=== PATIENT | female | born 1970 | race Caucasian/White ===

== ENCOUNTER 2021-12-18 09:47 | Emergency (ER) | payer OTHER ==
[~2021-12-18] VITALS: Ht 175.3 cm; Wt 55.9 kg
[2021-12-18] MEDS ORDERED: IV RINGERS,LACTATED 500ML 1,000 ML IV ONE (10:30)
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
[2021-12-18 10:59] LABS: CALCIUM 9.6 mg/dL (8.5-10.1); CREATININE 1.1 mg/dL (0.6-1.0); GFR 52.2; POTASSIUM 4.2 mmol/L (3.5-5.1)
[2021-12-18 11:07] LABS: BILIRUBIN,URINE NEGATIVE (NEG); CLARITY,URINE CLEAR; COLOR,URINE YELLOW; PH,URINE 5.5 (<5.0-8.0); PROTEIN,URINE TRACE mg/dL (NEG-TRACE); UROBILINOGEN,URINE 0.2 mg/dL (0.2 mg/dL)
[2021-12-18 11:08] LABS: NITRITE,URINE NEGATIVE (NEG)
[2021-12-18 11:10] LABS: ALBUMIN 3.5 g/dL (3.4-5.0); ALBUMIN/GLOBULIN RATIO 1.1 (1.0-1.7); TOTAL BILIRUBIN 0.3 mg/dL (0.2-1.0); TOTAL PROTEIN 6.6 g/dL (6.4-8.2)
[2021-12-18 11:10] LABS: BACTERIA,URINE 0 /HPF (0-FEW); RBC,URINE 0 /HPF (0-2)
[2021-12-18 11:12] LABS: BASO % 1 % (0-3); EOS # 0.1 x10^3/uL (0.0-0.7); EOS % 1 % (0-3); HEMATOCRIT 41.9 % (36.0-47.0); LYMPH # 1.1 x10^3/uL (1.0-4.8); LYMPH % 25 % (24-48); MEAN CORPUSCULAR HEMOGLOBIN 33 pg (25-35); MEAN CORPUSCULAR HGB CONC 34 g/dL (31-37); MEAN CORPUSCULAR VOLUME 99 fL (79-100); MONO # 0.3 x10^3/uL (0.0-1.1); MONO % 6 % (0-9); NEUT # 3.1 x10^3/uL (1.8-7.7); NEUT % 67 % (31-73); PLATELET COUNT 276 x10^3/uL (140-400); RED BLOOD COUNT 4.22 x10^6/uL (3.50-5.40); WHITE BLOOD COUNT 4.6 x10^3/uL (4.0-11.0)
[2021-12-18] MEDS ORDERED: IOHEXOL 300 MG/ML 100ML VIAL. IV ONE (11:30)
[2021-12-18] MEDS ORDERED: CONTRAST GIVEN. MC PRN (11:30)
--- NOTE | 2021-12-18 12:04 | RAD ---
CT ABDOMEN+PELVIS W History: right flank pain Comparison: None. Technique: After administration of intravenous contrast, helical CT of the abdomen and pelvis was per formed from the lung bases through the ischial tuberosities. Coronal and sagittal reconstructions wer e obtained. 60 mL of Omnipaque 300 were used. One or more of the following dose reduction techniques were utilized: Automated exposure control (AEC), Adjustment of mA and/or kV according to patient size , Use of iterative reconstruction technique such as ASiR, CT scan done according to ALARA and image g ently/image wisely Abdomen Findings: The visualized lung bases are clear. Small hiatal hernia. The liver, pancreas, spleen, and bilateral adrenal glands are normal. Cholecystectomy. Symmetric renal enhancement. There is no focal renal mass. There is no hydronephrosis. Bilateral tasneem l cortical irregularity, possibly due to prior infections and/or infarcts. The visualized loops of small bowel are normal. Mild colonic diverticulosis. Moderate to large coloni c stool burden. There is no evidence of bowel obstruction. Appendix is normal. There is no free fluid. There is no mesenteric or retroperitoneal adenopathy. The abdominal aorta is normal in caliber. Pelvis Findings: Urinary bladder is normal. Retroflexed uterus. No pelvic free fluid. There is no pelvic or inguinal a denopathy. There is no acute bony abnormality. IMPRESSION: 1. No acute findings. Normal appendix. No hydronephrosis or opaque urinary calculi. 2. Moderate to large colonic stool burden, which may reflect constipation. 3. Bilateral renal cortical irregularity, possibly due to prior infections and/or infarcts. Electronically signed by: Dilan Scales MD (12/18/2021 12:02 PM) [id number]
[2021-12-18] MEDS ORDERED: POLY119P4 PO (12:36)
[2021-12-18] MEDS ORDERED: DOCU283E RC (12:36)
[2021-12-18 12:40] VITALS: BP 134/71
== END 2021-12-18 12:45 | disposition home or self-care (01) ==
LOC: ER 09:47
DX: K59.00 Constipation, unspecified (principal); F43.10 Post-traumatic stress disorder, unspecified; Z90.49 Acquired absence of other specified parts of digestive tract; Z88.5 Allergy status to narcotic agent
CPT/HCPCS: 36415; 74177; 80053; 81001; 81025; 85025; 96360; 99285; J7120; Q9967